=== PATIENT | male | born 1995 | race Two or more races ===

== ENCOUNTER → 2025-07-04 | Outpatient (CLI) | payer BC, SELFPAY ==
--- NOTE | 2025-07-04 13:00 | XR_ITS ---
Examination: TRI, hepatobiliary radioisotope scan Gallbladder ejection fraction study. Date and time of exam: July 04, 2025, 2054 hours INDICATIONS: Right upper abdominal pain 5 months after eating Technique: 5.9 mCi of 99M Hepatolite administered. Serial imaging then obtained from immediate through 60 minutes. 2.4 mcg selective catheter Kinevac administered for gallbladder ejection fraction study. Findings: Radioisotope activity within the liver is reasonably homogenous. Gallbladder, common bile duct small bowel activity noted Impression: Gallbladder activity Abnormal gallbladder ejection fraction, 30%, normal greater than 35%
== END | disposition home or self-care (01) ==
PROVIDERS: Referring Provider Surgery; Visit Provider Surgery
DX: R93.89 Abnormal findings on diagnostic imaging of other specified body structures (principal)
CPT/HCPCS: 78227; A9537; J2805